=== PATIENT | female | born 1980 | race African-American/Black ===

== ENCOUNTER 2019-08-18 07:31 | Emergency (ER) | payer OTHER ==
[~2019-08-18] VITALS: Ht 165.1 cm; Wt 62.0 kg
[2019-08-18 07:36] VITALS: BP 183/95
[2019-08-18] MEDS ORDERED: AZIT250T PO (07:55)
[2019-08-18] MEDS ORDERED: FLUC150T PO (07:55)
--- NOTE | 2019-08-18 07:55 | PHYS DOC ---
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 Patient states symptoms have been going on for several weeks progressively becoming worse. Patient states she has been taking [id number] allergy medications. Patient states she has same illness yearly. Usually starts when seasonal change occurs. Congestion in the sinuses progresses to an infection. Patient states she usually is treated with an antibiotic. Review of Systems: Review of Systems: Constitutional: Denies fever or chills. [] Eyes: Denies change in visual acuity. [] HENT: Positive sinus congestion no sore throat Respiratory: Denies cough or shortness of breath. [] Cardiovascular: Denies chest pain or edema. [] GI: Denies abdominal pain, nausea, vomiting, bloody stools or diarrhea. [] : Denies dysuria. [] Musculoskeletal: Denies back pain or joint pain. [] Integument: Denies rash. [] Neurologic: Denies headache, focal weakness or sensory changes. [] Endocrine: Denies polyuria or polydipsia. [] Lymphatic: Denies swollen glands. [] Psychiatric: Denies depression or anxiety. [] Heart Score: Risk Factors: Risk Factors: DM, Current or recent (<one month) smoker, HTN, HLP, family history of CAD, obesity. Risk Scores: Score 0 - 3: 2.5% MACE over next 6 weeks - Discharge Home Score 4 - 6: 20.3% MACE over next 6 weeks - Admit for Clinical Observation Score 7 - 10: 72.7% MACE over next 6 weeks - Early Invasive Strategies Allergies: Allergies: Allergies Coded Allergies Type Severity Reaction Last Updated Verified No Known Drug Allergies 08/18/19 No Physical Exam: PE: Constitutional: Well developed, well nourished, no acute distress, non-toxic appearance. [] HENT: Normocephalic, atraumatic, bilateral external ears normal, oropharynx moist, no oral exudates, nose normal. Eyes: PERRLA, EOMI, conjunctiva normal, no discharge. [] Neck: Normal range of motion, no tenderness, supple, no stridor. [] Cardiovascular:Heart rate regular rhythm, no murmur [] Lungs & Thorax: Bilateral breath sounds clear to auscultation [] Abdomen: Bowel sounds normal, soft, no tenderness, no masses, no pulsatile masses. [] Skin: Warm, dry, no erythema, no rash. [] Back: No tenderness, no CVA tenderness. [] Extremities: No tenderness, no cyanosis, no clubbing, ROM intact, no edema. [] Neurologic: Alert and oriented X 3, normal motor function, normal sensory function, no focal deficits noted. [] Psychologic: Affect normal, judgement normal, mood normal. [] Current Patient Data: Vital Signs: Vital Signs Date Time Temp Pulse Resp B/P (MAP) Pulse Ox O2 Delivery O2 Flow Rate FiO2 08/18/19 07:36 98.3 103 18 183/95 (124) 98 Room Air 98.3 EKG: EKG: [] Radiology/Procedures: Radiology/Procedures: [] Course & Med Decision Making: Course & Med Decision Making Pertinent Labs and Imaging studies reviewed. (See chart for details) [] We will treat patient with Zithromax. Advised to continue her Viola. Will also prescribe patient Diflucan Mustapha Disclaimer: Mustapha Disclaimer: This electronic medical record was generated, in whole or in part, using a voice recognition dictation system. Departure Departure Impression: Primary Impression: Sinusitis Qualified Codes: J32.9 - Chronic sinusitis, unspecified Disposition: 01 HOME, SELF-CARE Condition: STABLE Patient Instructions: Sinusitis Scripts Fluconazole (DIFLUCAN) 150 Mg Tablet 1 TAB PO ONCE, #1 TAB 1 Refill Prov: KULWANT MUNOZ DO 08/18/19 Azithromycin (ZITHROMAX) 250 Mg Tablet 250 MG PO DAILY for ANTI-BIOTIC for 5 Days, #6 TAB 0 Refills 2 tabs day one 1 tab day 2-5 Prov: KULWANT MUNOZ DO 08/18/19 KULWANT MUNOZ DO August 18, 2019 07:55
== END 2019-08-18 08:07 | disposition home or self-care (01) ==
LOC: ER 07:31
DX: J32.9 Chronic sinusitis, unspecified (principal); R07.89 Other chest pain; R09.81 Nasal congestion; I10 Essential (primary) hypertension; F17.200 Nicotine dependence, unspecified, uncomplicated; Z98.890 Other specified postprocedural states
CPT/HCPCS: 99283